=== PATIENT | female | born 1985 | race Two or more races ===

== ENCOUNTER 2017-05-12 16:20 | Emergency (ER) | payer OTHER ==
[~2017-05-12] VITALS: Ht 162.6 cm; Wt 111.1 kg
[~2017-05-12 16:20] MED LIST: IBUPROFEN600 MG ORAL; NKM; NORCO 10/3251 EA ORAL; NORCO 5-325 TA1 EAC1 ORAL; [UNRECOGNIZED DRUG - REMARK]
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
[2017-05-12 17:11] LABS: APPEARANCE,URINE SLIGHTLY CLOUDY; KETONES,URINE NEGATIVE (NEGATIVE); LEUKOCYTE ESTERASE ,URINE 3+ (NEGATIVE); NITRITE,URINE NEGATIVE (NEGATIVE); PH,URINE 5 (4.5-8.0); PROTEIN,URINE NEGATIVE (NEGATIVE); UROBILINOGEN,URINE NORMAL MG/DL (0.0-1.0)
[2017-05-12 17:16] LABS: BASOPHILS % (AUTO) 0.5 % (0.0-2.0); EOSINOPHILS % (AUTO) 1.2 % (0.0-3.0); LYMPHOCYTES % (AUTO) 23.6 % (20.0-45.0); MEAN CORPUSCULAR HEMOGLOBIN 29.1 PG (27.0-31.0); MEAN CORPUSCULAR HGB CONC 32.5 G/DL (32.0-36.0); MEAN CORPUSCULAR VOLUME 89 FL (80-99); MONOCYTES % (AUTO) 5.7 % (1.0-10.0); NEUTROPHILS % (AUTO) 68.9 % (45.0-75.0); PLATELET COUNT 209 K/UL (150-450); RED BLOOD COUNT 4.16 M/UL (4.20-5.40); WHITE BLOOD COUNT 10.3 K/UL (4.8-10.8)
[2017-05-12 17:17] LABS: WBC,URINE 15-20 /HPF (0 - 2)
[2017-05-12 17:18] LABS: BACTERIA,URINE MODERATE /HPF; SQUAMOUS EPITHELIAL CELL,UR MANY /LPF (NONE/OCC)
[2017-05-12 17:26] LABS: ALANINE AMINOTRANSFERASE 19 U/L (12-78); ANION GAP 9 (5-15); ASPARTATE AMINO TRANSFERASE 12 U/L (15-37); CALCIUM 9.4 MG/DL (8.5-10.1); CARBON DIOXIDE 24 MMOL/L (21-32); CHLORIDE 101 MMOL/L (98-107); CREATININE 0.8 MG/DL (0.55-1.30); GLOMERULAR FILTRATION RATE > 60 mL/min (>60); LIPASE 164 U/L (73-393); POTASSIUM 3.5 MMOL/L (3.5-5.1); SODIUM 134 MMOL/L (136-145); TOTAL PROTEIN 7.3 G/DL (6.4-8.2)
[2017-05-12 18:30] VITALS: BP 100/68
[2017-05-12] MEDS ORDERED: ZOFRAN4 M3 ORAL (18:59)
[2017-05-12] MEDS ORDERED: CEPHALEXIN500 MG ORAL (18:59)
[2017-05-12] MEDS ORDERED: TYLENOL EXTRA500 MG ORAL (18:59)
[2017-05-12 19:20] VITALS: BP 100/68
--- NOTE | 2017-05-13 10:32 | Diagnostic Imaging Report ---
Indication: Positive now with pain and bleeding. Comparison: None Findings: Ultrasound evaluation of the pelvis was obtained via transabdominal and endovaginal approach. Uterus is normal in size measuring 8.8 cm in length by 5.1 cm AP by 7.6 cm in transverse dimension. There are some complex debris noted in the endometrial canal which may represent some blood component given history of bleeding. An intrauterine gestational sac containing a pole and yolk sac is identified. [place]-rump length measurements show estimated additional age of 7 weeks one day by ultrasound. However, no heart rate or motion is detected. Recommend a followup ultrasound in one to 2 weeks to assess viability. Both ovaries appear normal. Normal blood flow. No adnexal masses. No free fluid. Impression: Single intrauterine identified at estimated gestational age of 7 weeks one day by ultrasound. However, no heart rate or motion is detected indicating possible demise. Recommend ultrasound in one to 2 weeks to assess viability. Both ovaries are normal. No free fluid or adnexal masses.
== END 2017-05-12 19:20 | disposition home or self-care (01) ==
LOC: EMR 17:20
DX: O02.1 Missed abortion (principal)
CPT/HCPCS: 36415; 76801; 76830; 80053; 81003; 81025; 83690; 84702; 85025; 85610; 85730; 86850; 86900; 86901; 87086; 96374; 96375; 99284; J2405